=== PATIENT | male | born 1980 | race Two or more races ===

== ENCOUNTER 2022-12-10 08:59 | Emergency (ER) | payer OTHER ==
[~2022-12-10] VITALS: Ht 175.3 cm; Wt 89.8 kg
[2022-12-10] MEDS ORDERED: METFORMIN HCL500 M3 (09:12)
== END 2022-12-10 11:53 | disposition home or self-care (01) ==
LOC: ER 08:59
DX: S59.811A Other specified injuries right forearm, initial encounter (principal); W18.39XA Other fall on same level, initial encounter; Y93.I9 Activity, other involving external motion; Y92.89 Other specified places as the place of occurrence of the external cause; Y99.8 Other external cause status; Z88.0 Allergy status to penicillin